=== PATIENT | female | born 1945 | race Caucasian/White ===

== ENCOUNTER → 2020-06-22 09:52 | Outpatient (BNVA) | payer MEDICARE, SELFPAY | PROVIDERS: PCP Internal Medicine; Visit Provider Hospitalist | DX: I26.99 Other pulmonary embolism without acute cor pulmonale (principal); I10 Essential (primary) hypertension; G47.33 Obstructive sleep apnea (adult) (pediatric); I61.9 Nontraumatic intracerebral hemorrhage, unspecified | CPT/HCPCS: 99202 ==

== ENCOUNTER → 2020-07-06 08:05 | Outpatient (REF) | payer MEDICARE, SELFPAY ==
--- NOTE | 2020-07-06 08:13 | NM_ITS ---
EXAMINATION: PULMONARY PERFUSION STUDY CLINICAL INFORMATION: History of small PE. COMPARISON: Concurrent chest x-ray 07/06/2020. There are no other relevant studies available for comparison at time of dictation. TECHNIQUE: Following the intravenous administration of 4.0 mCi Tc-99m MAA, an 8 view perfusion study was performed. FINDINGS: No segmental perfusion defects are present. There is homogeneous distribution of activity bilaterally, with mildly decreased activity noted at the lung apices bilaterally, consistent with chronic changes seen on the chest x-ray. There are no focal anatomic appearing perfusion defects present. NM/NM pul perfusion IMPRESSION: Low probability radionuclide lung perfusion scan.
--- NOTE | 2020-07-06 08:14 | XR_ITS ---
EXAMINATION: XR CHEST CLINICAL INFORMATION: Other pulmonary embolism without acute cor pulmonale COMPARISON: None TECHNIQUE: 2 views of the chest were obtained. FINDINGS: The cardiac and mediastinal contours are normal. The pulmonary macey appear normal in contour. There is mild apical pleural parenchymal scarring. The lungs are otherwise clear. There is no pleural effusion or pneumothorax. There degenerative changes of the spine and curvature of the midthoracic spine to the left. XR/XR chest 2V IMPRESSION: Mild biapical pleural and parenchymal scarring.
== END ==
LOC: HO.NUCMED 08:05
PROVIDERS: PCP Internal Medicine; Visit Provider Hospitalist
DX: I26.99 Other pulmonary embolism without acute cor pulmonale (principal)
CPT/HCPCS: 71046; 78580; A9540

== ENCOUNTER → 2020-07-06 08:57 | Outpatient (REF) | payer MEDICARE, SELFPAY | LOC: HO.SL 08:57 | PROVIDERS: PCP Internal Medicine; Visit Provider Hospitalist | DX: G47.33 Obstructive sleep apnea (adult) (pediatric) (principal) | CPT/HCPCS: 95806 ==

== ENCOUNTER → 2020-07-21 09:50 | Outpatient (BNVA) | payer MEDICARE, SELFPAY | PROVIDERS: PCP Internal Medicine; Visit Provider Hospitalist | DX: G47.33 Obstructive sleep apnea (adult) (pediatric) (principal); I10 Essential (primary) hypertension; I26.99 Other pulmonary embolism without acute cor pulmonale | CPT/HCPCS: 99212 ==

== ENCOUNTER → 2020-09-29 10:52 | Outpatient (BNVA) | payer MEDICARE, SELFPAY | PROVIDERS: PCP Internal Medicine; Visit Provider Hospitalist | DX: I60.9 Nontraumatic subarachnoid hemorrhage, unspecified (principal); I61.9 Nontraumatic intracerebral hemorrhage, unspecified; I10 Essential (primary) hypertension; I26.99 Other pulmonary embolism without acute cor pulmonale; G47.33 Obstructive sleep apnea (adult) (pediatric) | CPT/HCPCS: 99212 ==

== ENCOUNTER → 2021-01-05 11:17 | Outpatient (BNVA) | payer MEDICARE, SELFPAY | PROVIDERS: PCP Internal Medicine; Visit Provider Hospitalist | DX: I60.9 Nontraumatic subarachnoid hemorrhage, unspecified (principal); I10 Essential (primary) hypertension; G47.33 Obstructive sleep apnea (adult) (pediatric) | CPT/HCPCS: 99212 ==

== ENCOUNTER → 2021-04-05 11:12 | Outpatient (BNVA) | payer MEDICARE, SELFPAY | PROVIDERS: PCP Internal Medicine; Visit Provider Hospitalist | DX: G47.33 Obstructive sleep apnea (adult) (pediatric) (principal); G47.00 Insomnia, unspecified; I10 Essential (primary) hypertension; I60.9 Nontraumatic subarachnoid hemorrhage, unspecified | CPT/HCPCS: 99212 ==